=== PATIENT | female | born 1975 | race Caucasian/White ===

== ENCOUNTER 2017-08-02 02:42 | Emergency (ER) | payer MEDICARE ==
[2017-08-02] MEDS ORDERED: OMEPRAZOLE40 MG PO (02:58)
[2017-08-02] MEDS ORDERED: LEVOTHYROXINE0.2 MG PO (02:58)
[2017-08-02] MEDS ORDERED: POTASSIUM CHLO20 ME4 PO (02:58)
[2017-08-02] MEDS ORDERED: FUROSEMIDE20 MG PO (02:58)
[2017-08-02] MEDS ORDERED: LEVOTHYROXINE0.05 MG PO (02:58)
[2017-08-02] MEDS ORDERED: DULOXETINE60 MG PO (02:59)
[2017-08-02] MEDS ORDERED: LOSARTAN POTAS100 MG PO (02:59)
[2017-08-02] MEDS ORDERED: WELLBUTRIN XL150 M2 PO (02:59)
[2017-08-02] MEDS ORDERED: QUETIAPINE FUM400 MG PO (02:59)
[2017-08-02] MEDS ORDERED: WELLBUTRIN XL300 M1 PO (02:59)
[2017-08-02] MEDS ORDERED: ZANTAC150 M1 PO (02:59)
[2017-08-02] MEDS ORDERED: REXULTI1 MG PO (03:00)
[2017-08-02] MEDS ORDERED: QUETIAPINE FUM200 M1 PO (03:00)
[2017-08-02] MEDS ORDERED: D-1000 185 MG-11 TAB PO (03:01)
[2017-08-02] MEDS ORDERED: MULTIVITAMIN1 SGL PO (03:01)
[2017-08-02] MEDS ORDERED: MASON NATURAL1200 MG PO (03:01)
[2017-08-02 03:49] LABS: ACETAMINOPHEN < 4 ug/mL (10-30); ALCOHOL IN-HOUSE < 10 mg/dL
[2017-08-02 07:22] VITALS: BP 161/92
== END 2017-08-02 10:40 | disposition home or self-care (01) ==
LOC: ED 02:42
PROVIDERS: Nurse Practitioner Primary Care
DX: F32.9 Major depressive disorder, single episode, unspecified (principal); R45.851 Suicidal ideations; F43.10 Post-traumatic stress disorder, unspecified; F44.81 Dissociative identity disorder; I10 Essential (primary) hypertension; F17.200 Nicotine dependence, unspecified, uncomplicated

== ENCOUNTER 2018-03-23 18:35 | Emergency (ER) | payer MEDICARE ==
[~2018-03-23] VITALS: Ht 167.6 cm; Wt 141.8 kg
[~2018-03-23 18:35] MED LIST: D-1000 185 MG-11 TAB PO; DULOXETINE60 MG PO; FUROSEMIDE20 MG PO; LEVOTHYROXINE0.05 MG PO; LEVOTHYROXINE0.2 MG PO; LOSARTAN POTAS100 MG PO; MASON NATURAL1200 MG PO; MULTIVITAMIN1 SGL PO; OMEPRAZOLE40 MG PO; POTASSIUM CHLO20 ME4 PO; QUETIAPINE FUM200 M1 PO; QUETIAPINE FUM400 MG PO; REXULTI1 MG PO; WELLBUTRIN XL150 M2 PO; WELLBUTRIN XL300 M1 PO; ZANTAC150 M1 PO
[2018-03-23] MEDS ORDERED: REXULTI2 MG PO (18:57)
[2018-03-23] MEDS ORDERED: OMEPRAZOLE40 MG PO (18:58)
[2018-03-23] MEDS ORDERED: LASIX20 M1 PO (18:59)
[2018-03-23] MEDS ORDERED: SEROQUEL XR400 MG PO (19:00)
[2018-03-23] MEDS ORDERED: K-TAB20 MEQ PO (19:00)
[2018-03-23] MEDS ORDERED: NALTREXONE HYDR50 MG PO (19:01)
[2018-03-23 19:53] LABS: BASO # 0.1 (0.02-0.10); EOS # 0.4 (0.04-0.40); EOS % 4.5 % (1.0-5.0); HEMATOCRIT 44.2 % (37.0-47.0); MEAN CELL VOLUME 87 fl (78-100); MEAN CORPUSCULAR HEMOGLOBIN 27 pg (27-31); MEAN CORPUSCULAR HGB CONC 32 g/dL (33-37); MEAN PLATELET VOLUME 10.5 fl (7.4-10.4); MONO # 0.7 (0.20-0.80); NEU # 4.7 (1.40-6.50); PLATELET COUNT 326 K/mm3 (130-400); RED BLOOD COUNT 5.11 M/mm3 (4.10-5.30); RED CELL DISTRIBUTION WIDTH 16.9 % (11.5-14.5); WHITE BLOOD COUNT 8.9 K/mm3 (4.8-10.8)
[2018-03-23 20:22] LABS: URINE APPEARANCE CLOUDY; URINE BILIRUBIN NEGATIVE (NEGATIVE); URINE BLOOD 250 ery/uL (NEGATIVE); URINE COLOR REDISH YELLOW; URINE GLUCOSE NEGATIVE (NEGATIVE); URINE KETONE NEGATIVE (NEGATIVE); URINE LEUKOCYTE ESTERASE TRACE (NEGATIVE); URINE NITRATE NEGATIVE (NEGATIVE); URINE PROTEIN(semi-quant) TRACE mg/dL (NEGATIVE); URINE UROBILINOGEN NORMAL (NORMAL)
[2018-03-23 20:23] LABS: URINE MUCUS PRESENT (NOT PRESENT)
[2018-03-23 20:38] VITALS: BP 139/94
== END 2018-03-23 20:38 | disposition home or self-care (01) ==
LOC: ED 18:35
PROVIDERS: Family Medicine
DX: N92.0 Excessive and frequent menstruation with regular cycle (principal); E03.9 Hypothyroidism, unspecified; G62.9 Polyneuropathy, unspecified; F17.210 Nicotine dependence, cigarettes, uncomplicated; Z98.51 Tubal ligation status; Z90.49 Acquired absence of other specified parts of digestive tract

== ENCOUNTER 2018-07-25 16:04 | Emergency (ER) | payer MEDICARE, MEDICAID ==
[~2018-07-25 16:04] MED LIST changes: +K-TAB20 MEQ PO; +LASIX20 M1 PO; +NALTREXONE HYDR50 MG PO; +REXULTI2 MG PO; +SEROQUEL XR400 MG PO
[2018-07-25 17:21] LABS: EOS # 0.2 (0.04-0.40); EOS % 1.9 % (1.0-5.0); HEMATOCRIT 43.4 % (37.0-47.0); HEMOGLOBIN 13.6 g/dL (12.5-16.0); LYMPH# 2.4 (1.50-4.00); MEAN CELL VOLUME 89 fl (78-100); MEAN CORPUSCULAR HEMOGLOBIN 28 pg (27-31); MEAN CORPUSCULAR HGB CONC 31 g/dL (33-37); MEAN PLATELET VOLUME 10.6 fl (7.4-10.4); MONO # 0.7 (0.20-0.80); NEU # 6.3 (1.40-6.50); PLATELET COUNT 264 K/mm3 (130-400); RED BLOOD COUNT 4.89 M/mm3 (4.10-5.30); RED CELL DISTRIBUTION WIDTH 14.8 % (11.5-14.5); WHITE BLOOD COUNT 9.6 K/mm3 (4.8-10.8)
[2018-07-25 18:07] LABS: ALBUMIN 3.7 g/dL (3.5-5.0); ALT/SGPT 40 U/L (0-55); AST-SGOT 25 U/L (5-34); CALCIUM 9.9 mg/dL (8.3-10.5); CARBON DIOXIDE 27 mmol/L (22-29); GLUCOSE 99 mg/dL (65-105); POTASSIUM 3.9 mmol/L (3.5-5.1); SODIUM 141 mmol/L (136-145); TOTAL BILIRUBIN 0.2 mg/dL (0.2-1.2); TOTAL PROTEIN 7.3 g/dL (6.4-8.3)
[2018-07-25 18:12] LABS: ACETAMINOPHEN < 1 ug/mL; ALCOHOL IN-HOUSE < 10 mg/dL (<10)
[2018-07-25] MEDS ORDERED: GABAPENTIN TAB600 MG PO (18:29)
[2018-07-25] MEDS ORDERED: OLANZAPINE10 M1 PO (18:47)
[2018-07-25] MEDS ORDERED: HALOPERIDOL20 M1 PO (18:47)
[2018-07-25 20:16] VITALS: BP 165/85
== END 2018-07-25 20:16 | disposition home or self-care (01) ==
LOC: ED 16:04
PROVIDERS: Nurse Practitioner Family
DX: R45.851 Suicidal ideations (principal); F32.9 Major depressive disorder, single episode, unspecified; K21.9 Gastro-esophageal reflux disease without esophagitis; E03.9 Hypothyroidism, unspecified; F43.10 Post-traumatic stress disorder, unspecified; G62.9 Polyneuropathy, unspecified; F17.290 Nicotine dependence, other tobacco product, uncomplicated; Z91.5 Personal history of self-harm; Z90.49 Acquired absence of other specified parts of digestive tract; Z98.51 Tubal ligation status
CPT/HCPCS: J1630

== ENCOUNTER 2018-07-28 19:42 | Emergency (ER) | payer MEDICARE, MEDICAID ==
[~2018-07-28] VITALS: Ht 170.2 cm; Wt 144.5 kg
[~2018-07-28 19:42] MED LIST changes: +GABAPENTIN TAB600 MG PO; +HALOPERIDOL20 M1 PO; +OLANZAPINE10 M1 PO
[2018-07-28 19:50] VITALS: BP 158/96
[2018-07-28 20:35] LABS: BASO # 0.1 (0.02-0.10); EOS # 0.3 (0.04-0.40); EOS % 2.1 % (1.0-5.0); HEMATOCRIT 42.3 % (37.0-47.0); HEMOGLOBIN 13.6 g/dL (12.5-16.0); LYMPH# 3.3 (1.50-4.00); MEAN CELL VOLUME 88 fl (78-100); MEAN CORPUSCULAR HEMOGLOBIN 28 pg (27-31); MEAN CORPUSCULAR HGB CONC 32 g/dL (33-37); MEAN PLATELET VOLUME 10.4 fl (7.4-10.4); MONO # 0.9 (0.20-0.80); NEU # 7.2 (1.40-6.50); PLATELET COUNT 275 K/mm3 (130-400); RED CELL DISTRIBUTION WIDTH 14.8 % (11.5-14.5); WHITE BLOOD COUNT 11.7 K/mm3 (4.8-10.8)
[2018-07-28 21:03] LABS: URINE APPEARANCE CLOUDY; URINE BILIRUBIN NEGATIVE (NEGATIVE); URINE BLOOD TRACE (NEGATIVE); URINE COLOR YELLOW; URINE GLUCOSE NEGATIVE (NEGATIVE); URINE KETONE NEGATIVE (NEGATIVE); URINE LEUKOCYTE ESTERASE NEGATIVE (NEGATIVE); URINE MUCUS PRESENT (NOT PRESENT); URINE NITRATE NEGATIVE (NEGATIVE); URINE PROTEIN(semi-quant) NEGATIVE (NEGATIVE); URINE UROBILINOGEN NORMAL (NORMAL)
[2018-07-28 21:19] LABS: ACETAMINOPHEN < 1 ug/mL; ALBUMIN 3.9 g/dL (3.5-5.0); ALCOHOL IN-HOUSE < 10 mg/dL (<10); ALT/SGPT 39 U/L (0-55); AST-SGOT 24 U/L (5-34); CALCIUM 9.6 mg/dL (8.3-10.5); CARBON DIOXIDE 25 mmol/L (22-29); GLUCOSE 95 mg/dL (65-105); POTASSIUM 3.8 mmol/L (3.5-5.1); SODIUM 140 mmol/L (136-145); TOTAL BILIRUBIN 0.2 mg/dL (0.2-1.2); TOTAL PROTEIN 7.6 g/dL (6.4-8.3)
== END 2018-07-28 23:41 | disposition home or self-care (01) ==
LOC: ED 19:42
PROVIDERS: Nurse Practitioner
DX: F39 Unspecified mood [affective] disorder (principal); I10 Essential (primary) hypertension; F31.9 Bipolar disorder, unspecified; M19.90 Unspecified osteoarthritis, unspecified site; E07.9 Disorder of thyroid, unspecified; F60.3 Borderline personality disorder; F44.81 Dissociative identity disorder; K76.0 Fatty (change of) liver, not elsewhere classified; F43.10 Post-traumatic stress disorder, unspecified; F17.210 Nicotine dependence, cigarettes, uncomplicated; Z90.49 Acquired absence of other specified parts of digestive tract; Z98.51 Tubal ligation status; Z98.890 Other specified postprocedural states; Z91.5 Personal history of self-harm

== ENCOUNTER 2018-08-10 04:41 | Emergency (ER) | payer MEDICARE, MEDICAID ==
[~2018-08-10] VITALS: Ht 170.2 cm; Wt 136.4 kg
[2018-08-10] MEDS ORDERED: HYDROXYZINE PAM50 M2 PO (05:18)
[2018-08-10] MEDS ORDERED: BUSPIRONE5 MG PO (05:18)
[2018-08-10] MEDS ORDERED: LATUDA80 MG PO (05:19)
[2018-08-10 05:37] LABS: EOS # 0.3 (0.04-0.40); EOS % 3.3 % (1.0-5.0); HEMATOCRIT 44.2 % (37.0-47.0); HEMOGLOBIN 14.2 g/dL (12.5-16.0); LYMPH# 2.3 (1.50-4.00); MEAN CELL VOLUME 87 fl (78-100); MEAN CORPUSCULAR HEMOGLOBIN 28 pg (27-31); MEAN CORPUSCULAR HGB CONC 32 g/dL (33-37); MONO # 0.6 (0.20-0.80); NEU # 6.3 (1.40-6.50); PLATELET COUNT 286 K/mm3 (130-400); RED CELL DISTRIBUTION WIDTH 14.9 % (11.5-14.5); WHITE BLOOD COUNT 9.6 K/mm3 (4.8-10.8)
[2018-08-10 05:52] LABS: ALBUMIN 3.9 g/dL (3.5-5.0); ALT/SGPT 33 U/L (0-55); AST-SGOT 24 U/L (5-34); CALCIUM 9.5 mg/dL (8.3-10.5); CARBON DIOXIDE 25 mmol/L (22-29); GLUCOSE 124 mg/dL (65-105); SODIUM 139 mmol/L (136-145); TOTAL BILIRUBIN 0.3 mg/dL (0.2-1.2); TOTAL PROTEIN 7.8 g/dL (6.4-8.3)
[2018-08-10 06:01] LABS: ALCOHOL IN-HOUSE < 10 mg/dL (<10)
[2018-08-10 06:36] LABS: URINE COLOR YELLOW
[2018-08-10 06:37] LABS: URINE APPEARANCE HAZY; URINE BILIRUBIN NEGATIVE (NEGATIVE); URINE BLOOD TRACE (NEGATIVE); URINE GLUCOSE NEGATIVE (NEGATIVE); URINE KETONE NEGATIVE (NEGATIVE); URINE LEUKOCYTE ESTERASE 2+ (NEGATIVE); URINE NITRATE POSITIVE (NEGATIVE); URINE PROTEIN(semi-quant) TRACE mg/dL (NEGATIVE); URINE UROBILINOGEN NORMAL (NORMAL); URINE WBC >50 /hpf (0-3)
[2018-08-10] MEDS ORDERED: CLARITIN LIQUI-10 MG PO (07:58)
[2018-08-10] MEDS ORDERED: ALEVE220 M1 PO (07:59)
[2018-08-10] MEDS ORDERED: SEPTRA DS 8001 TAB PO (08:18)
[2018-08-10 08:27] VITALS: BP 134/76
== END 2018-08-10 08:30 | disposition home or self-care (01) ==
LOC: ED 04:41
PROVIDERS: Family Medicine
DX: R45.851 Suicidal ideations (principal); F32.9 Major depressive disorder, single episode, unspecified; N39.0 Urinary tract infection, site not specified; E03.9 Hypothyroidism, unspecified; F17.210 Nicotine dependence, cigarettes, uncomplicated; Z91.14 Patient's other noncompliance with medication regimen
CPT/HCPCS: J1630

== ENCOUNTER 2018-09-19 13:02 | Emergency (ER) | payer MEDICARE, MEDICAID ==
[~2018-09-19 13:02] MED LIST changes: +ALEVE220 M1 PO; +BUSPIRONE5 MG PO; +CLARITIN LIQUI-10 MG PO; +HYDROXYZINE PAM50 M2 PO; +LATUDA80 MG PO; +SEPTRA DS 8001 TAB PO
[2018-09-19] MEDS ORDERED: LEVOTHYROXINE0.05 MG PO (13:40)
[2018-09-19] MEDS ORDERED: DULOXETINE30 MG PO (13:40)
[2018-09-19] MEDS ORDERED: GABAPENTIN100 MG PO (13:41)
[2018-09-19] MEDS ORDERED: REXULTI2 MG PO (13:42)
[2018-09-19] MEDS ORDERED: HYDROXYZINE PAM50 M2 PO (13:43)
[2018-09-19 14:00] LABS: BASO # 0.1 (0.02-0.10); EOS # 0.2 (0.04-0.40); EOS % 2.2 % (1.0-5.0); HEMATOCRIT 45.7 % (37.0-47.0); HEMOGLOBIN 14.6 g/dL (12.5-16.0); MEAN CELL VOLUME 87 fl (78-100); MEAN CORPUSCULAR HEMOGLOBIN 28 pg (27-31); MEAN CORPUSCULAR HGB CONC 32 g/dL (33-37); MEAN PLATELET VOLUME 10.4 fl (7.4-10.4); MONO # 0.5 (0.20-0.80); PLATELET COUNT 333 K/mm3 (130-400); RED BLOOD COUNT 5.25 M/mm3 (4.10-5.30); RED CELL DISTRIBUTION WIDTH 15.2 % (11.5-14.5); WHITE BLOOD COUNT 8.8 K/mm3 (4.8-10.8)
[2018-09-19 14:12] LABS: POTASSIUM 4.3 mmol/L (3.5-5.1)
[2018-09-19 14:13] LABS: SODIUM 142 mmol/L (136-145)
[2018-09-19 14:13] LABS: URINE APPEARANCE CLOUDY; URINE BILIRUBIN NEGATIVE (NEGATIVE); URINE BLOOD 50 ery/uL (NEGATIVE); URINE COLOR YELLOW; URINE GLUCOSE NEGATIVE (NEGATIVE); URINE KETONE SMALL (NEGATIVE); URINE LEUKOCYTE ESTERASE NEGATIVE (NEGATIVE); URINE NITRATE NEGATIVE (NEGATIVE); URINE PROTEIN(semi-quant) TRACE mg/dL (NEGATIVE); URINE UROBILINOGEN NORMAL (NORMAL)
[2018-09-19 14:14] LABS: CALCIUM 9.6 mg/dL (8.3-10.5)
[2018-09-19 14:15] LABS: GLUCOSE 100 mg/dL (65-105); TOTAL PROTEIN 7.8 g/dL (6.4-8.3)
[2018-09-19 14:16] LABS: CARBON DIOXIDE 24 mmol/L (22-29)
[2018-09-19 14:17] LABS: TOTAL BILIRUBIN 0.4 mg/dL (0.2-1.2)
[2018-09-19 14:20] LABS: AST-SGOT 29 U/L (5-34)
[2018-09-19 14:22] LABS: ALT/SGPT 40 U/L (0-55)
[2018-09-19 14:24] LABS: ACETAMINOPHEN < 1 ug/mL; ALCOHOL IN-HOUSE < 10 mg/dL (<10)
[2018-09-19 15:15] VITALS: BP 166/88
== END 2018-09-19 15:15 | disposition home or self-care (01) ==
LOC: ED 13:02
PROVIDERS: Nurse Practitioner Family
DX: E03.2 Hypothyroidism due to medicaments and other exogenous substances (principal); T43.4X5A Adverse effect of butyrophenone and thiothixene neuroleptics, initial encounter; I10 Essential (primary) hypertension; F44.81 Dissociative identity disorder; K76.0 Fatty (change of) liver, not elsewhere classified; F17.210 Nicotine dependence, cigarettes, uncomplicated; Z98.51 Tubal ligation status

== ENCOUNTER 2023-05-15 04:58 | Emergency (ER) | payer MEDICARE, MEDICAID ==
[~2023-05-15] VITALS: Ht 170.2 cm; Wt 120.3 kg
[2023-05-15] VITALS (8 sets, daily range): BP systolic 135–167; BP diastolic 80–91
[~2023-05-15 04:58] MED LIST changes: +DULOXETINE30 MG PO; +GABAPENTIN100 MG PO
[2023-05-15 06:42] LABS: BASO # 0.03 K/mm3 (0.02-0.10); EOS # 0.23 K/mm3 (0.04-0.40); EOS % 2.7 % (1.0-5.0); HEMATOCRIT 47.8 % (37.0-47.0); HEMOGLOBIN 15.4 g/dL (12.5-16.0); LYMPH# 2.97 K/mm3 (1.50-4.00); MEAN CELL VOLUME 93 fl (78-100); MEAN CORPUSCULAR HEMOGLOBIN 30 pg (27-31); MEAN CORPUSCULAR HGB CONC 32 g/dL (33-37); MEAN PLATELET VOLUME 11.1 fl (7.4-10.4); MONO # 0.41 K/mm3 (0.20-0.80); NEU # 4.99 K/mm3 (1.40-6.50); PLATELET COUNT 217 K/mm3 (130-400); RED BLOOD COUNT 5.13 M/mm3 (4.10-5.30); RED CELL DISTRIBUTION WIDTH 13.5 % (11.5-14.5); WHITE BLOOD COUNT 8.6 K/mm3 (4.8-10.8)
[2023-05-15 06:46] LABS: ALBUMIN 3.7 g/dL (3.5-5.0); SODIUM 142 mmol/L (136-145)
[2023-05-15 06:47] LABS: CALCIUM 9.4 mg/dL (8.3-10.5)
[2023-05-15 06:48] LABS: GLUCOSE 102 mg/dL (65-105); TOTAL PROTEIN 6.7 g/dL (6.4-8.3)
[2023-05-15 06:49] LABS: CARBON DIOXIDE 24 mmol/L (22-29)
[2023-05-15 06:50] LABS: TOTAL BILIRUBIN 0.5 mg/dL (0.2-1.2)
[2023-05-15 06:53] LABS: AST-SGOT 17 U/L (5-34)
[2023-05-15 06:55] LABS: ALT/SGPT 16 U/L (0-55)
[2023-05-15 06:58] LABS: ACETAMINOPHEN < 1 ug/mL; ALCOHOL IN-HOUSE < 10 mg/dL (<10)
[2023-05-15] MEDS ORDERED: Nicotine 21 MG DAILY PATCH TD ONE (10:15)
[2023-05-15] MEDS ORDERED: LORazepam 0.5 MG TABLET PO ONE (13:30)
== END 2023-05-15 15:55 ==
LOC: ED 04:58
PROVIDERS: Physician Assistant
DX: F32.A Depression, unspecified (principal); R45.851 Suicidal ideations; F17.200 Nicotine dependence, unspecified, uncomplicated